=== PATIENT | male | born 1985 ===

== ENCOUNTER 2017-12-03 15:10 | Emergency (ER) | payer OTHER ==
[2017-12-03 15:15] VITALS: BP 109/78; PULSE 88; RESP 20; TEMP 98.2; O2SAT 97
--- NOTE | 2017-12-03 15:26 | C.PDOC ---
History Of Present Illness 32 year old male presents to the ED for evaluation of left ankle pain for the past 6 days. Patient states at first was aching then started noticing some swelling. Patient reports he took 1 dose of advil with no relief. Patient denies injury, fall, trauma, weakness, numbness. Time Seen by Provider: 12/03/17 15:19 Chief Complaint (Nursing): Lower Extremity Problem/Injury History Per: Patient History/Exam Limitations: no limitations Onset/Duration Of Symptoms: Days (6) Current Symptoms Are (Timing): Still Present Recent travel outside of the [place]: No Additional History Per: Patient - Ankle/Foot Description Of Injury: Other Alleviating Factor(s): OTC Pain Medication Past Medical History Reviewed: Historical Data, Nursing Documentation, Vital Signs Vital Signs: Last Vital Signs Temp 98.2 F 12/03/17 15:13 Pulse 88 12/03/17 15:13 Resp 20 12/03/17 15:13 BP 109/78 12/03/17 15:13 Pulse Ox 97 12/03/17 16:56 - Medical History PMH: No Chronic Diseases Surgical History: No Surg Hx Family History: States: Unknown Family Hx - Social History Hx Alcohol Use: No Hx Substance Use: No - Immunization History Hx Tetanus Toxoid Vaccination: Yes Hx Influenza Vaccination: No Hx Pneumococcal Vaccination: No Review Of Systems Constitutional: Negative for: Fever, Chills Cardiovascular: Negative for: Chest Pain Respiratory: Negative for: Shortness of Breath Gastrointestinal: Negative for: Nausea, Vomiting Musculoskeletal: Positive for: Foot Pain Neurological: Negative for: Weakness, Numbness Physical Exam - Physical Exam Appears: Non-toxic, No Acute Distress Skin: Normal Color, Warm, Dry Head: Atraumatic, Normacephalic Eye(s): bilateral: Normal Inspection Neck: Normal ROM, Supple Extremity: Normal ROM, Tenderness (medial aspect left ankle), Capillary Refill ( < 2 seconds), No Deformity, Swelling (medial aspect left ankle) Pulses: Left Dorsalis Pedis: Normal, Right Dorsalis Pedis: Normal Neurological/Psych: Oriented x3, Normal Speech, Normal Motor, Normal Sensation Gait: Steady ED Course And Treatment O2 Sat by Pulse Oximetry: 97 (ON RA) Pulse Ox Interpretation: Normal Medical Decision Making Medical Decision Making: Impression: left ankle pain and swelling Plan: * Left ankle X-Ray * Motrin 600 mg PO Xray viewed by Dr Miramontes and me showing no acute fx, accessory or sessamoid seen on bilateral malleolus. CP applied bina and aircast Patient advised to take motrin for pain, rest ice and elevate ankle. Follow up with ortho or podiatry Disposition Counseled Patient/Family Regarding: Need For Followup, Rx Given - Disposition Referrals: [facility] [Outside] Zena Saab [Other] ([facility] AT [facility]) Disposition: HOME/ ROUTINE Disposition Time: 16:25 Condition: GOOD Additional Instructions: Your xray was normal, no fracture. Please apply ice to area 15 minutes three times a day. Take Motrin as needed for pain every 6 hours, with food to not upset stomach. Follow up with orthopedic if pain persists over one week. Tu radiografa fue normal, sin fractura. Por favor aplique hielo en el josiane 15 minutos steven veces al da. [place] Motrin cuando sea necesario para el dolor cada 6 horas, con alimentos para no alterar el estmago. Jaime un seguimiento con la clnica de podologa. Prescriptions: Ibuprofen [Motrin] 600 mg PO Q8 #30 tab Instructions: Ankle Sprain (DC) Forms: [employer] [facility] (Togolese) Print Language: ENGLISH - POA Present On Arrival: None - Clinical Impression Clinical Impression: Ankle sprain - PA / WELDER TOOL AND DIE / Resident Statement MD/DO has reviewed & agrees with the documentation as recorded. - Scribe Statement The provider has reviewed the documentation as recorded by the Scribe Serge Us All medical record entries made by the Scribe were at my direction and personally dictated by me. I have reviewed the chart and agree that the record accurately reflects my personal performance of the history, physical exam, medical decision making, and the department course for this patient. I have also personally directed, reviewed, and agree with the discharge instructions and disposition.
--- NOTE | 2017-12-03 16:36 | RAD ---
PROCEDURE: Left Ankle Radiographs. HISTORY: Left ankle pain 1 week duration COMPARISON: None FINDINGS: BONES: Well corticated osseous excrescence is distal tibia and distal fibula. JOINTS: Normal. No osteoarthritis. Ankle mortise maintained. Talar dome intact SOFT TISSUES: Soft tissue swelling anteriorly, posteriorly and laterally. OTHER FINDINGS: None. IMPRESSION: Soft tissue swelling without acute articular or osseous abnormality.
== END 2017-12-03 16:59 | disposition home or self-care (01) ==
LOC: C.ER 15:10
DX: S93.402A Sprain of unspecified ligament of left ankle, initial encounter (principal); X58.XXXA Exposure to other specified factors, initial encounter